=== PATIENT | male | born 1980 | race Caucasian/White ===

== ENCOUNTER 2022-03-30 20:00 | Emergency (ER) | payer OTHER, SELFPAY ==
[2022-03-30] MEDS ORDERED: Boostrix 0.5 ML (Tdap) VIAL (>/=7 yrs of age) ONE (20:09)
[2022-03-30] MEDS ORDERED: Lidocaine 1% PF 5 ML VIAL ONE (20:09)
[2022-03-30] MEDS ORDERED: Bupivacaine 0.5% 10 ML VIAL ONE (20:09)
[2022-03-30] MEDS ORDERED: Ibuprofen 200 MG TAB ONE (20:26)
[2022-03-30] MEDS ORDERED: Cephalexin 250 MG CAP ONE (20:26)
[2022-03-30] MEDS ORDERED: Bacitracin 1 PK ONE (20:26)
[2022-03-30] MEDS ORDERED: Sulfameth/Trimethoprim DS 800-160mg TAB ONE (20:26)
== END 2022-03-30 20:50 | disposition home or self-care (01) ==
LOC: BURERS 20:00
DX: S61.241A Puncture wound with foreign body of left index finger without damage to nail, initial encounter (principal); W45.8XXA Other foreign body or object entering through skin, initial encounter; Z23 Encounter for immunization
CPT/HCPCS: 10120; 90471; 90715; J3490